=== PATIENT | male | born 2000 | race Caucasian/White ===

== ENCOUNTER 2021-08-31 10:23 | Emergency (ER) | payer SELFPAY ==
[~2021-08-31] VITALS: Ht 172.7 cm; Wt 104.3 kg
[2021-08-31 10:35] VITALS: BP_SYST 133
--- NOTE | 2021-08-31 10:35 | NUR ---
Patient to ER bed 8 to gown for evaluation. Side rails up. Assumed care.
--- NOTE | 2021-08-31 10:48 | NUR ---
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
--- NOTE | 2021-08-31 10:59 | NUR ---
ER at bedside examining patient.
[2021-08-31] MEDS ORDERED: PROM5SYR PO ×3 (11:20→11:58)
[2021-08-31] MEDS ORDERED: PRED20TA PO ×3 (11:22→11:58)
[2021-08-31 11:33] VITALS: BP_SYST 133
--- NOTE | 2021-08-31 11:34 | NUR ---
Patient given written and verbal discharge instructions and verbalizes understanding. ER MD discussed with patient the results and treatment provided. Patient in stable condition. ID arm band removed. Rx of Prednisone and Promethazine/codeine given. Patient educated on pain management and to follow up with PMD. Opportunity for questions provided and answered. Medication side effect fact sheet provided.
== END 2021-08-31 11:33 | disposition home or self-care (01) ==
LOC: SED 10:23
DX: J20.8 Acute bronchitis due to other specified organisms (principal); Z79.899 Other long term (current) drug therapy
CPT/HCPCS: 99283

== ENCOUNTER 2022-07-23 10:03 | Emergency (ER) | payer SELFPAY ==
[~2022-07-23] VITALS: Ht 172.7 cm; Wt 104.3 kg
[~2022-07-23 10:03] MED LIST: PRED20TA PO; PRED50TA PO; PROM5SYR PO
[2022-07-23 10:30] VITALS: BP_SYST 136
[2022-07-23] MEDS ORDERED: PRED20TA PO (11:17)
[2022-07-23 11:27] VITALS: BP_SYST 136
== END 2022-07-23 11:20 | disposition home or self-care (01) ==
LOC: SED 10:03
DX: R05.9 Cough, unspecified (principal); J45.909 Unspecified asthma, uncomplicated; Z79.899 Other long term (current) drug therapy
CPT/HCPCS: 99283